=== PATIENT | female | born 1990 ===

== ENCOUNTER 2017-03-31 11:15 | Emergency (ER) | payer MEDICAID ==
[2017-03-31 11:36] VITALS: TEMP 97.9; O2SAT 100
[2017-03-31] MEDS ORDERED: Sodium Chloride 0.9% 1,000 ML IV STA (11:50)
--- NOTE | 2017-03-31 11:50 | ED PDOC ---
Arrival/HPI - General Chief Complaint: Abdominal Pain Time Seen by Provider: 03/31/17 11:34 Historian: Patient - History of Present Illness Narrative History of Present Illness (Text): 03/31/17 11:50 This 26 yo female who denies pmh, presents to this ED with her c/o epigastric, and RUQ abdominal pain since this morning. Patient stated she woke up with pain. Pain is constant and achy. Patient admits eating " churrasco" last night. Patient feels nauseous, and she had vomited 5 times this since this morning. Patient denies alcohol abuse, chest pain, sob, urinary symptoms, dizziness, or abnormal gait. Time/Duration: Other (see hpi) Quality: Aching Context: Home Past Medical History - Provider Review Nursing Documentation Reviewed: Yes - Psychiatric Hx Substance Use: No Family/Social History - Physician Review Nursing Documentation Reviewed: Yes Family/Social History: Other Smoking Status: Never Smoked Hx Alcohol Use: No Hx Substance Use: No Allergies/Home Meds Allergies/Adverse Reactions: Allergies shrimp Allergy (Verified 03/31/17 11:36) ANAPHYLAXIS Review of Systems - Review of Systems Constitutional: Normal. absent: Fatigue, Weight Change, Fevers, Night Sweats Eyes: Normal ENT: Normal Respiratory: Normal. absent: SOB Cardiovascular: Normal. absent: Chest Pain, Palpitations Gastrointestinal: Abdominal Pain, Nausea, Vomiting. absent: Constipation, Diarrhea Genitourinary Female: Normal. absent: Dysuria, Frequency, Hematuria Musculoskeletal: Normal. absent: Back Pain, Neck Pain Skin: Normal. absent: Rash Neurological: Normal. absent: Headache, Dizziness, Focal Weakness Endocrine: Normal Hemo/Lymphatic: Normal Psychiatric: Normal. absent: Anxiety, Depression, Suicidal Ideation Physical Exam Vital Signs Temp Pulse Resp BP Pulse Ox 03/31/17 13:45 67 18 130/75 100 03/31/17 12:59 69 18 132/79 100 03/31/17 11:33 97.9 F 75 17 134/85 100 Temperature: Afebrile Blood Pressure: Normal Pulse: Regular Respiratory Rate: Normal Appearance: Positive for: Well-Appearing, Non-Toxic, Comfortable Pain Distress: None Mental Status: Positive for: Alert and Oriented X 3 - Systems Exam Head: Present: Atraumatic, Normocephalic Pupils: Present: PERRL Extroacular Muscles: Present: EOMI Conjunctiva: Present: Normal Mouth: Present: Moist Mucous Membranes Neck: Present: Normal Range of Motion Respiratory/Chest: Present: Clear to Auscultation, Good Air Exchange. No: Respiratory Distress, Accessory Muscle Use Cardiovascular: Present: Regular Rate and Rhythm, Normal S1, S2. No: Murmurs Abdomen: Present: Tenderness (Mild RUQ tenderness.), Normal Bowel Sounds. No: Distention, Peritoneal Signs, Rebound, Guarding Back: Present: Normal Inspection Upper Extremity: Present: Normal Inspection. No: Cyanosis, Edema Lower Extremity: Present: Normal Inspection. No: Edema Neurological: Present: GCS=15, CN II-XII Intact, Speech Normal Skin: Present: Warm, Dry, Normal Color. No: Rashes Psychiatric: Present: Alert, Oriented x 3, Normal Insight, Normal Concentration Medical Decision Making ED Course and Treatment: 03/31/17 13:54 Patient is resting comfortably, in no distress, abdomen is soft, no rebound or guarding, and is tolerating PO. Patient has no signs or symptoms to suggest surgical pathology. Patient was advised to follow up without fail with physician /clinic or to return to the ER for reevaluation in 1-2 days. Patient was recommended to speak with pmd to get a referral to see General surgery for elective cholecystectomy Patient denies urinary symptoms, she will f/u urine culture result with pmd Re-evaluation Time: 13:55 Reassessment Condition: Re-examined, Improved - Lab Interpretations Lab Results: 03/31/17 12:12 03/31/17 12:12 Lab Results 03/31/17 12:12: Sodium 138, Potassium 4.1, Chloride 105, Carbon Dioxide 23, Anion Gap 14, BUN 13, Creatinine 0.8, Est GFR ( Amer) > 60, Est GFR (Non- Af Amer) > 60, Random Glucose 104, Calcium 9.4, Total Bilirubin 0.6, AST 25, ALT 45, Alkaline Phosphatase 66, Total Protein 7.9, Albumin 4.6, Globulin 3.3, Albumin/Globulin Ratio 1.4, Lipase 98 03/31/17 12:12: WBC 6.8, RBC 4.61, Hgb 13.9, Hct 40.7, MCV 88.3, MCH 30.2, MCHC 34.2, RDW 12.4, Plt Count 236, MPV 10.2, Gran % 77.4 H, Lymph % (Auto) 17.2 L, Castro % (Auto) 3.5, Eos % (Auto) 1.5, Baso % (Auto) 0.4, Gran # 5.25, Lymph # 1.2 , Castro # 0.2, Eos # 0.1, Baso # 0.03 03/31/17 12:00: Urine Color Yellow, Urine Appearance Clear, Urine pH 6.5, Ur Specific [place] 1.025, Urine Protein 30 H, Urine Glucose (UA) Negative, Urine Ketones Negative, Urine Blood Negative, Urine Nitrate Negative, Urine Bilirubin Negative, Urine Urobilinogen 0.2, Ur Leukocyte Esterase Negative, Urine RBC Negative, Urine WBC 0 - 2, Ur Epithelial Cells 6 - 8, Urine Bacteria Mod, Urine HCG, Qual Negative - RAD Interpretation Narrative RAD Interpretations (Text): 03/31/17 13:42 HISTORY: RUQ pain r/o GB stones COMPARISON: None. TECHNIQUE: Grayscale imaging was performed. FINDINGS: LIVER: Measures 13.7 cm. Normal echogenicity of the liver parenchyma. No mass. No intrahepatic bile duct dilatation. GALLBLADDER: There are multiple gallstones. No gallbladder wall thickening, pericholecystic fluid or positive sonographic Verduzco's sign COMMON BILE DUCT: Measures 4.5 mm. No stones. No dilatation. PANCREAS: The pancreas is normal in size and echotexture. No mass. No ductal dilatation. RIGHT KIDNEY: Measures 10.8cm. Normal echogenicity. No calculus, mass, or hydronephrosis. LEFT KIDNEY: Measures 10.7cm. Normal echogenicity. No calculus, mass, or hydronephrosis. SPLEEN: Normal in size and contour. No mass. AORTA: No aneurysmal dilatation. IVC: Unremarkable. OTHER FINDINGS: None. IMPRESSION: Cholelithiasis. No evidence of acute cholecystitis or biliary dilatation. Radiology Orders: 03/31/17 11:50 ABDOMEN COMPLETE [US] Stat 03/31/17 11:52 CHEST TWO VIEWS (PA/LAT) [RAD] Stat - Medication Orders Current Medication Orders: Discontinued Medications Famotidine (Pepcid) 20 mg IVP STAT STA Stop: 03/31/17 11:51 Last Admin: 03/31/17 12:16 Dose: 20 mg IVP Administration Document 03/31/17 12:16 EQ (Rec: 03/31/17 12:16 EQ [facility]) Charges for Administration # of IVP Administrations 1 Sodium Chloride (Sodium Chloride 0.9%) 1,000 mls @ 1,000 mls/hr IV .Q1H STA Stop: 03/31/17 12:49 Last Admin: 03/31/17 12:16 Dose: 1,000 mls/hr eMAR Start Stop Document 03/31/17 12:16 EQ (Rec: 03/31/17 12:17 EQ [facility]) Intravenous Solution Start Date 03/31/17 Start Time 12:16 Ondansetron HCl (Zofran Inj) 4 mg IVP STAT STA Stop: 03/31/17 11:51 Last Admin: 03/31/17 12:17 Dose: 4 mg IVP Administration Document 03/31/17 12:17 EQ (Rec: 03/31/17 12:17 EQ [facility]) Charges for Administration # of IVP Administrations 1 Disposition/Present on Arrival - Present on Arrival Any Indicators Present on Arrival: No History of DVT/PE: No History of Uncontrolled Diabetes: No Urinary Catheter: No History of Decub. Ulcer: No History Surgical Site Infection Following: None - Disposition Have Diagnosis and Disposition been Completed?: Yes Diagnosis: Cholelithiasis Disposition: HOME/ ROUTINE Disposition Time: 13:56 Patient Plan: Discharge Patient Problems: Current Active Problems Problem Status Onset Cholelithiasis Acute Condition: GOOD Discharge Instructions (ExitCare): Gallstones (ED) Additional Instructions: Call private doctor for follow up visit and revaluation in 1-2 days. Consider speaking with general surgeon for elective gall bladder surgery. Return to emergency if symptoms worsen. Prescriptions: Famotidine [Pepcid] 40 mg PO DAILY #10 tablet Ondansetron ODT [Zofran ODT] 4 mg PO Q4H PRN #15 odt PRN Reason: Nausea/Vomiting Referrals: [facility] [Outside] - Follow up with primary [facility] [Outside] - Follow up with primary Forms: [employer] ([place]), WORK NOTE
[2017-03-31 12:12] LABS: PH,URINE 6.5 (4.7-8.0); URINE BILIRUBIN NEGATIVE (NEGATIVE); URINE BLOOD NEGATIVE (NEGATIVE); URINE GLUCOSE (UA) NEGATIVE (NEGATIVE); URINE KETONE NEGATIVE (NEGATIVE); URINE LEUKOCYTE ESTERASE NEGATIVE Leu/uL (NEGATIVE); URINE PROTEIN 30 mg/dL (<30 mg/dL); URINE UROBILINOGEN 0.2 E.U./dL (<1 E.U./dL)
[2017-03-31 12:13] LABS: URINE APPEARANCE CLEAR (CLEAR); URINE COLOR YELLOW (YELLOW)
[2017-03-31 12:16] LABS: BASO # 0.03 K/mm3 (0.0-2.0); BASO % 0.4 % (0.0-3.0); EOS # 0.1 (0.0-0.7); EOS % 1.5 % (1.5-5.0); GRAN # 5.25 (1.4-6.5); GRAN % 77.4 % (50.0-68.0); HEMATOCRIT 40.7 % (36.0-48.0); LYMPH # 1.2 (1.2-3.4); LYMPH % 17.2 % (22.0-35.0); MEAN CELL VOLUME 88.3 fl (80.0-105.0); MEAN CORPUSCULAR HEMOGLOBIN 30.2 pg (25.0-35.0); MEAN CORPUSCULAR HGB CONC 34.2 g/dl (31.0-37.0); MEAN PLATELET VOLUME 10.2 fl (7.0-11.0); MONO # 0.2 (0.1-0.6); MONO % 3.5 % (1.0-6.0); RED CELL DISTRIBUTION WIDTH 12.4 % (11.5-14.5); WHITE BLOOD COUNT 6.8 10^3/ul (4.5-11.0)
[2017-03-31 12:25] LABS: URINE RBC NEGATIVE /hpf (0-2)
[2017-03-31 12:26] LABS: ALB/GLOB RATIO 1.4 (1.1-1.8); ALKALINE PHOSPHATASE 66 U/L (38-126); ALT/SGPT 45 U/L (7-56); AST/SGOT 25 U/L (14-36); BILIRUBIN,TOTAL 0.6 mg/dL (0.2-1.3); BLOOD UREA NITROGEN 13 mg/dL (7-21); CALCIUM 9.4 mg/dL (8.4-10.5); CARBON DIOXIDE 23 mmol/L (21-33); CHLORIDE 105 mmol/L (98-107); GFR AFRICAN-AMERICAN > 60; GLUCOSE,RANDOM 104 mg/dL (70-110); LIPASE 98 U/L (23-300); POTASSIUM 4.1 mmol/L (3.6-5.0); SODIUM 138 mmol/L (132-148); TOTAL PROTEIN 7.9 g/dL (5.8-8.3)
[2017-03-31 12:26] LABS: URINE BACTERIA MOD (NEG); URINE WBC 0 - 2 /hpf (0-6)
[2017-03-31 12:59] VITALS: RESP 18
--- NOTE | 2017-03-31 13:38 | US ---
HISTORY: RUQ pain r/o GB stones COMPARISON: None. TECHNIQUE: Grayscale imaging was performed. FINDINGS: LIVER: Measures 13.7 cm. Normal echogenicity of the liver parenchyma. No mass. No intrahepatic bile duct dilatation. GALLBLADDER: There are multiple gallstones. No gallbladder wall thickening, pericholecystic fluid or positive sonographic Verduzco's sign COMMON BILE DUCT: Measures 4.5 mm. No stones. No dilatation. PANCREAS: The pancreas is normal in size and echotexture. No mass. No ductal dilatation. RIGHT KIDNEY: Measures 10.8cm. Normal echogenicity. No calculus, mass, or hydronephrosis. LEFT KIDNEY: Measures 10.7cm. Normal echogenicity. No calculus, mass, or hydronephrosis. SPLEEN: Normal in size and contour. No mass. AORTA: No aneurysmal dilatation. IVC: Unremarkable. OTHER FINDINGS: None. IMPRESSION: Cholelithiasis. No evidence of acute cholecystitis or biliary dilatation.
[2017-03-31 13:46] VITALS: BP 130/75; PULSE 67
--- NOTE | 2017-03-31 14:38 | RAD ---
HISTORY: RUQ pain COMPARISON: No prior. TECHNIQUE: Chest PA and lateral FINDINGS: LUNGS: No active pulmonary disease. PLEURA: No significant pleural effusion identified. No pneumothorax apparent. CARDIOVASCULAR: Normal. OSSEOUS STRUCTURES: No significant abnormalities. VISUALIZED UPPER ABDOMEN: Normal. OTHER FINDINGS: None. IMPRESSION: No active disease.
== END 2017-03-31 14:19 | disposition home or self-care (01) ==
LOC: ED 11:15
DX: K80.20 Calculus of gallbladder without cholecystitis without obstruction (principal)
CPT/HCPCS: 71020; 76700; 80053; 81001; 83690; 84703; 85025; 96374; 96375; 99284; J2405; J7040